=== PATIENT | female | born 1970 | race American Indian/Alaskan Native ===

== ENCOUNTER 2021-09-05 09:27 | Emergency (ER) | payer SELFPAY ==
[2021-09-05 10:29] LABS: Hematocrit 39.7 % (30.3-42.9); Hemoglobin 13.1 gm/dl (10.1-14.3); Mean Corpuscular HGB Conc 33 % (30-34); Mean Corpuscular Volume 82 fl (79-97); Platelet Count 209 K/mm3 (140-440); Red Blood Count 4.83 M/mm3 (3.65-5.03); Red Cell Distribution Width 13.6 % (13.2-15.2)
--- NOTE | 2021-09-05 10:33 | XRay Report ---
CHEST 2 VIEWS INDICATION / CLINICAL INFORMATION: Chest Pain. COMPARISON: None available. FINDINGS: SUPPORT DEVICES: None. HEART / MEDIASTINUM: No significant abnormality. LUNGS / PLEURA: There is bibasilar atelectasis versus scarring with probable scarring also seen along the lung apices. The lungs are otherwise clear. No significant pleural effusion. No pneumothorax. ADDITIONAL FINDINGS: No significant additional findings. IMPRESSION: 1. No acute abnormality of the chest. 2. Additional findings as above. Signer Name: Young Bland MD Signed: 09/05/2021 10:29 AM Workstation Name: [employer]
[2021-09-05 10:36] LABS: INR 0.95 (0.87-1.13); Partial Thromboplastin Time 27.5 Sec. (24.2-36.6)
[2021-09-05 10:46] LABS: Alanine Aminotransferase 24 units/L (7-56); Albumin 4.5 g/dL (3.9-5); BUN/Creatinine Ratio 8; Blood Urea Nitrogen 6 mg/dL (7-17); Calcium 10.2 mg/dL (8.4-10.2); Hemolysis Index 1
[2021-09-05 12:09] LABS: Basophils % (Manual) 0 % (0.0-1.8); Total Cells Counted 100
[2021-09-05 12:12] LABS: Anisocytosis 2+; Poikilocytosis 1+
[2021-09-05 12:13] LABS: Large Platelets Rare; Ovalocytes Rare; Platelet Estimate Consistent w Auto
[2021-09-06] MEDS ORDERED: IBUPROFEN 800 MG TAB ONE (08:59)
--- NOTE | 2021-09-06 08:59 | Electrocardiograph Report ---
[facility] Test Date: 2021-09-05 Test Time: 09:42:42 Pat Name: GWENDOLYN ROJAS Department: Room: Gender: F Residential Specialist: HOWARD : 1970 Requested By: ED DOC Order Number: [id number] Reading MD: Hua Lopez Measurements Intervals [place] Rate: 75 P: 77 DE: 158 QRS: 57 QRSD: 89 T: 40 QT: 389 QTc: 434 Interpretive Statements Sinus rhythm No previous ECG available for comparison Electronically Signed On 09-06-2021 8:59:01 EDT by Hua Lopez
--- NOTE | 2021-09-06 09:28 | Emergency Department Report ---
ED General Adult HPI - General Chief complaint: Chest Pain Stated complaint: CHEST PAIN Source: patient Mode of arrival: Ambulatory Limitations: No Limitations - History of Present Illness Initial comments: 50-year-old female presents to the ED complaining of cough and chest pain x3 days. Patient states that she smoked hookah and black and milds daily. She states that she has a history of eczema. Patient denies any pain at present time. She did has a dry cough during examination. Patient denies any abdominal pain nausea vomiting or diarrhea. She is sitting up on laptop. She is alert and oriented x3. No acute distress. No ill appearance noted Severity scale (0 -10): 2 Improves with: none Worsens with: none Associated Symptoms: denies other symptoms Treatments Prior to Arrival: none - Related Data Previous Rx's Medication Instructions Recorded Last Taken Type Albuterol Mdi (or & Nicu Only) 2 puff IH QID PRN 30 Days #8.5 gram 09/06/21 Unknown Rx [ProAir HFA Inhaler] Azithromycin 250 mg PO DAILY 5 Days #6 tab 09/06/21 Unknown Rx predniSONE [Deltasone] 50 mg PO QDAY 3 Days #3 tab 09/06/21 Unknown Rx Allergies Allergy/AdvReac Type Severity Reaction Status Date / Time No Known Allergies Allergy Verified 09/05/21 09:40 ED Review of Systems ROS: Stated complaint: CHEST PAIN Other details as noted in HPI Constitutional: denies: chills, fever Eyes: denies: eye pain, eye discharge, vision change ENT: denies: ear pain, throat pain Respiratory: denies: cough, shortness of breath, wheezing Cardiovascular: denies: chest pain, palpitations Endocrine: no symptoms reported Gastrointestinal: denies: abdominal pain, nausea, diarrhea Genitourinary: denies: urgency, dysuria, discharge Musculoskeletal: denies: back pain, joint swelling, arthralgia Skin: denies: rash, lesions Neurological: denies: headache, weakness, paresthesias Psychiatric: denies: anxiety, depression Hematological/Lymphatic: denies: easy bleeding, easy bruising ED Past Medical Hx - Medications Home Medications: Home Medications Medication Instructions Recorded Confirmed Last Taken Type Albuterol Mdi (or & Nicu Only) 2 puff IH QID PRN 30 Days #8.5 gram 09/06/21 Unknown Rx [ProAir HFA Inhaler] Azithromycin 250 mg PO DAILY 5 Days #6 tab 09/06/21 Unknown Rx predniSONE [Deltasone] 50 mg PO QDAY 3 Days #3 tab 09/06/21 Unknown Rx ED Physical Exam - General Limitations: No Limitations General appearance: alert, in no apparent distress - Head Head exam: Present: atraumatic, normocephalic - Eye Eye exam: Present: normal appearance - ENT ENT exam: Present: mucous membranes moist - Neck Neck exam: Present: normal inspection - Respiratory Respiratory exam: Present: normal lung sounds bilaterally. Absent: respiratory distress - Cardiovascular Cardiovascular Exam: Present: regular rate, normal rhythm. Absent: systolic murmur, diastolic murmur, rubs, gallop - GI/Abdominal GI/Abdominal exam: Present: soft, normal bowel sounds - Extremities Exam Extremities exam: Present: normal inspection - Back Exam Back exam: Present: normal inspection - Neurological Exam Neurological exam: Present: alert, oriented X3 - Psychiatric Psychiatric exam: Present: normal affect, normal mood - Skin Skin exam: Present: warm, dry, intact, normal color. Absent: rash ED Course Vital Signs 09/05/21 09/06/21 09/06/21 09:37 09:41 09:42 Temperature 98.4 F Pulse Rate 75 72 72 Respiratory 18 20 20 Rate Blood Pressure 117/81 111/78 111/78 [Right] O2 Sat by Pulse 99 99 99 Oximetry ED Medical Decision Making - Lab Data Result diagrams: 09/05/21 10:15 09/05/21 10:15 - Radiology Data [facility] [address] [place] [address] XRay Report Signed Patient: GWENDOLYN ROJAS MR#: Selam [id number] : 1970 Acct:[id number] Age/Sex: 51 / F ADM Date: 09/05/21 Loc: ED Attending Dr: Ordering Physician: ED MD JONY Date of Service: 09/05/21 Procedure(s): XR chest routine 2V Accession Number(s): [id number] cc: ED MD JONY Fluoro Time In Minutes: CHEST 2 VIEWS INDICATION / CLINICAL INFORMATION: Chest Pain. COMPARISON: None available. FINDINGS: SUPPORT DEVICES: None. HEART / MEDIASTINUM: No significant abnormality. LUNGS / PLEURA: There is bibasilar atelectasis versus scarring with probable sc arring also seen along the lung apices. The lungs are otherwise clear. No significant pleural effusion. No pneumoth orax. ADDITIONAL FINDINGS: No significant additional findings. IMPRESSION: 1. No acute abnormality of the chest. 2. Additional findings as above. Signer Name: Young Bland MD Signed: 09/05/2021 10:29 AM Workstation Name: [id number] Transcribed By: [place] Dictated By: Young Bland MD Electronically Authenticated By: Young Bland MD Signed Date/Time: 09/05/21 1029 DD/ 1028 TD/TT: Print Cancel - Medical Decision Making 50-year-old female presents to the ED complaining of cough and chest pain x3 days. Patient states that she smoked hookah and black and milds daily. She states that she has a history of eczema. Patient denies any pain at present time. She did has a dry cough during examination. Patient denies any abdominal pain nausea vomiting or diarrhea. She is sitting up on laptop. She is alert and oriented x3. No acute distress. No ill appearance noted. Physical examination is unremarkable. Chest x-ray showed no abnormality. Rechecked the patient is resting quietly quietly and comfortable and feeling better. I discussed the results of diagnostic study, my clinical impression and the plan for further treatment with the patient. Patient agrees with plan and discharge at this present time. All question addressed. I have given the patient instruction regarding a diagnosis ,expectation ,follow- up and return precaution. I explained to the patient that emergent condition may arise and to return to the ED for new worsen and any new persisting condition. I have explained the importance of following up with the primary care physician or referral physician listed below has instructed. The patient verbalized understanding of discharge instruction. Abnormal Lab Results 09/05/21 09/05/21 09/05/21 10:15 10:15 10:15 WBC 2.3 L RBC 4.83 Hgb 13.1 Hct 39.7 MCV 82 MCH 27 L MCHC 33 RDW 13.6 Plt Count 209 Add Manual Diff Complete Total Counted 100 Seg Neuts % (Manual) 51.0 Band Neutrophils % 0 Lymphocytes % (Manual) 24.0 Reactive Lymphs % (Man) 0 Monocytes % (Manual) 16.0 H Eosinophils % (Manual) 9.0 H Basophils % (Manual) 0 Metamyelocytes % 0 Myelocytes % 0 Promyelocytes % 0 Blast Cells % 0 Nucleated RBC % Not Reportable Seg Neutrophils # Man 1.2 L Band Neutrophils # 0.0 Lymphocytes # (Manual) 0.6 L Abs React Lymphs (Man) 0.0 Monocytes # (Manual) 0.4 Eosinophils # (Manual) 0.2 Basophils # (Manual) 0.0 Metamyelocytes # 0.0 Myelocytes # 0.0 Promyelocytes # 0.0 Blast Cells # 0.0 WBC Morphology Not Reportable Hypersegmented Neuts Not Reportable Hyposegmented Neuts Not Reportable Hypogranular Neuts Not Reportable Smudge Cells Not Reportable Toxic Granulation Not Reportable Toxic Vacuolation Not Reportable Dohle Bodies Not Reportable Pelger-Huet Anomaly Not Reportable Carl[place] Rods Not Reportable Platelet Estimate Consistent w auto Clumped Platelets Not Reportable Plt Clumps, EDTA Not Reportable Large Platelets Rare Giant Platelets Not Reportable Platelet Satelliting Not Reportable Plt Morphology Comment Not Reportable RBC Morphology Not Reportable Dimorphic RBCs Not Reportable Polychromasia Not Reportable Hypochromasia Not Reportable Poikilocytosis 1+ Anisocytosis 2+ Microcytosis 2+ Macrocytosis Not Reportable Spherocytes Not Reportable Pappenheimer Bodies Not Reportable Sickle Cells Not Reportable Target Cells Not Reportable Tear Drop Cells Not Reportable Ovalocytes Rare Helmet Cells Not Reportable Bueno-Danielson Bodies Not Reportable [employer] [place] Rings Not Reportable [place] Cells Not Reportable Bite Cells Not Reportable Crenated Cell Not Reportable Elliptocytes Few Acanthocytes (Spur) Not Reportable Rouleaux Not Reportable Hemoglobin C Crystals Not Reportable Schistocytes Not Reportable Malaria parasites Not Reportable Garett Bodies Not Reportable Hem Pathologist Commnt No PT 13.7 INR 0.95 APTT 27.5 Sodium 143 Potassium 4.7 Chloride 103.8 Carbon Dioxide 29 Anion Gap 15 BUN 6 L Creatinine 0.8 Estimated GFR > 60 BUN/Creatinine Ratio 8 Glucose 91 Calcium 10.2 Total Bilirubin 0.40 AST 24 ALT 24 Alkaline Phosphatase 100 Troponin T < 0.010 Total Protein 8.0 Albumin 4.5 Albumin/Globulin Ratio 1.3 Critical care attestation.: If time is entered above; I have spent that time in minutes in the direct care of this critically ill patient, excluding procedure time. ED Disposition Clinical Impression: URI (upper respiratory infection) Qualifiers: URI type: unspecified URI Qualified Code(s): J06.9 - Acute upper respiratory infection, unspecified Disposition: HOME / SELF CARE / HOMELESS Is pt being admited?: No Does the pt Need Aspirin: No Condition: Stable Instructions: Upper Respiratory Infection, Adult Additional Instructions: Take medication as prescribed Return to the ED for any worsening symptom Prescriptions: Azithromycin 250 mg PO DAILY 5 Days #6 tab predniSONE [Deltasone] 50 mg PO QDAY 3 Days #3 tab Albuterol Mdi (or & Nicu Only) [ProAir HFA Inhaler] 2 puff IH QID PRN 30 Days #8.5 gram PRN Reason: Shortness Of Breath Referrals: [facility] [Provider Group] - 3-5 Days Forms: Work/School Release Form(ED) Time of Disposition: 09:33
[2021-09-06 09:42] VITALS: BP 111/78
--- NOTE | 2021-09-07 09:13 | Electrocardiograph Report ---
[facility] Test Date: 2021-09-06 Test Time: 08:31:52 Pat Name: GWENDOLYN ROJAS Department: Room: Gender: F Clamp Truck Driver: REECE : 1970 Requested By: LOURDES BLANCO Order Number: [id number] Reading MD: Hua Lopez Measurements Intervals [place] Rate: 67 P: 77 PA: 167 QRS: 50 QRSD: 84 T: 42 QT: 391 QTc: 415 Interpretive Statements Sinus rhythm Probable left atrial enlargement Compared to ECG 09/05/2021 09:42:42 No significant changes Electronically Signed On 09-07-2021 9:12:53 EDT by Hua Lopez
== END 2021-09-06 09:42 | disposition home or self-care (01) ==
LOC: ED 09:27
DX: J06.9 Acute upper respiratory infection, unspecified (principal)
CPT/HCPCS: 36415; 71046; 80053; 84484; 85007; 85025; 85610; 85730; 93005; 99284